=== PATIENT | male | born 2000 | race African-American/Black ===

== ENCOUNTER 2024-12-20 19:16 | Emergency (ER) | payer OTHER, SELFPAY ==
[2024-12-20 19:37] VITALS: BP 135/67; PULSE 64; RESP 18; TEMP 37.3; O2SAT 98; BMI 25.1
[2024-12-20 19:51] VITALS: BP 140/84; PULSE 67; O2SAT 97
[2024-12-20 19:52] VITALS: BP 135/67; PULSE 64; RESP 18; TEMP 37.3; O2SAT 98
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
[2024-12-20 22:04] VITALS: BP 131/65; PULSE 77; RESP 16; TEMP 37.3; O2SAT 97
[2024-12-20 22:07] VITALS: BP 131/65; PULSE 77; RESP 16; TEMP 37.3; O2SAT 97
== END 2024-12-20 22:15 | disposition home or self-care (01) ==
PROVIDERS: Emergency Provider Internal Medicine
DX: K94.01 Colostomy hemorrhage (principal)
CPT/HCPCS: 99283; 99284